=== PATIENT | male | born 1965 | race Caucasian/White ===

== ENCOUNTER 2019-09-09 03:54 | Inpatient (IN) | payer OTHER ==
[~2019-09-09] VITALS: Ht 185.4 cm; Wt 78.0 kg
[2019-09-09 04:00] VITALS: BP 172/85
[2019-09-09] MEDS ORDERED: ASA81BEC PO (04:06)
[2019-09-09] MEDS ORDERED: FISH OIL 1,0001 EAC9 PO (04:07)
[2019-09-09] MEDS ORDERED: SIMVASTATIN80 MG PO (04:07)
[2019-09-09] MEDS ORDERED: BASAGLAR K100 UNIT/1 ×2 (04:08)
[2019-09-09] MEDS ORDERED: HUMALOG100 UNIT/1 SUBQ (04:09)
[2019-09-09 04:30] LABS: ABSOLUTE BASOPHILS 0.1 thou/uL (0.0-0.2); ABSOLUTE EOSINOPHILS 0.2 thou/uL (0.0-0.7); ABSOLUTE LYMPHOCYTES 3.8 thou/uL (0.8-5.3); ABSOLUTE MONOCYTES 0.7 thou/uL (0.0-1.2); BASOPHILS 0.8 %; EOSINOPHILS 2.5 %; HEMATOCRIT 40.8 % (42.0-52.0); HEMOGLOBIN 14.5 gm/dL (14.0-18.0); LYMPHOCYTES 49.2 %; MCH 32.2 pg (26.0-34.0); MCHC 35.5 g/dL (28.0-37.0); MCV 90.7 fL (80.0-100.0); MONOCYTES 8.6 %; MPV 7.7 fl. (7.2-11.1); NUCLEATED RBCS 0 /100WBC; PLATELET COUNT* 235 thou/uL (150-400); POLYS 38.9 %; RDW-CV 13.5 % (10.5-14.5); WBC 7.7 thou/uL (4.0-11.0)
[2019-09-09 04:39] LABS: PROTIME 10.2 Seconds (9.20-11.50)
[2019-09-09 04:42] LABS: URINE BILIRUBIN NEGATIVE (Negative); URINE BLOOD NEGATIVE (Negative); URINE CLARITY CLEAR; URINE COLOR YELLOW; URINE GLUCOSE-RANDOM NEGATIVE (Negative); URINE KETONES NEGATIVE (Negative); URINE LEUKOCYTES-REFLEX NEGATIVE (Negative); URINE NITRITE-REFLEX NEGATIVE (Negative); URINE PROTEIN NEGATIVE (Negative); URINE SPECIFIC GRAVITY 1.015 (1.005-1.030); URINE UROBILINOGEN 0.2 E.U./dl (0.2-1.0)
[2019-09-09 05:15] LABS: CALCIUM 9.1 mg/dL (8.5-10.1); CREATININE 0.8 mg/dL (0.6-1.3)
[2019-09-09 05:19] LABS: ALBUMIN 3.7 g/dL (3.4-5.0); TOTAL BILIRUBIN 0.8 mg/dL (<0.1-1.0); TOTAL PROTEIN 7.4 g/dL (6.4-8.2)
[2019-09-09 08:15] VITALS: BP 136/73
[2019-09-09 08:30] VITALS: BP 136/82
[2019-09-09 09:41] LABS: CHOLESTEROL 149 mg/dL (<200); HDL CHOLESTEROL 40 mg/dL (>40); LDL CHOLESTEROL 98 mg/dL (<100); TC:HDL 3.7 Ratio (Not establshd); TRIGLYCERIDE 59 mg/dL (<150); VLDL 12 mg/dL (<40)
[2019-09-09 10:08] LABS: SERUM ASSESSMENT Clear
--- NOTE | 2019-09-09 10:19 | EKG ---
[place] [address] ELECTROCARDIOGRAM REPORT Name: VANESSA REYNA Room: [address] IN [facility]#: [id number] Admission: 09/09/19 Attend Phys: Vanessa Mcintyre, Discharge: Date of : 63 Date of Service: 09/09/19 0411 Report #: [id number] THIS REPORT FOR: //name// [facility] ED Test Date: 2019-09-09 Test Time: 04:11:08 Pat Name: VANESSA REYNA Department: Room: [facility] Gender: M Apartment Rental Agent: [place] : 1965 Requested By: Sadie Nickerson Order Number: [id number] MD: Rick Beach Measurements Intervals [place] Rate: 72 P: 69 SD: 223 QRS: 69 QRSD: 101 T: 15 QT: 391 QTc: 428 Interpretive Statements Sinus rhythm Prolonged SD interval Minimal ST elevation, anterior leads No previous ECG available for comparison Electronically Signed On 09-09-2019 10:18:19 CDT by Rick Beach [email or web address] <ELECTRONICALLY SIGNED> By: Rick Beach MD, [facility] 09/09/19 1018 0411 0411 Rick Beach MD, FACC /EPI
--- NOTE | 2019-09-09 11:10 | NUR ---
Pt lives at home with . Prior independent and active. SW to remain available to assist with safe dc planning if needs arise.
[2019-09-09] MEDS ORDERED: LOVASTAT20 PO (12:29)
--- NOTE | 2019-09-09 13:48 | 2DMMODE ---
[place] [address] 2 D/M-MODE ECHOCARDIOGRAM Name: VANESSA REYNA Room: [address] IN [facility]#: [id number] Admission: 09/09/19 Attend Phys: Vanessa Mcintyre, Discharge: Date of : 63 Date of Service: 09/09/19 1346 Report #: [id number] THIS REPORT FOR: cc: Rick López MD, David L. MD Blick, David R. MD [facility] ~ ADDENDUM APPROVED REPORT Study performed: 09/09/2019 11:16:34 EXAM: Echocardiogram with bubble study Patient Location: In-Patient Room #: [facility] Status: routine BSA: 2.11 HR: 60 bpm BP: 136/73 mmHg Rhythm: NSR Other Information Study Quality: Good Indications Dizziness and Vertigo 2D Dimensions IVSd: 11.17 (7-11mm) LVOT Diam: 21.39 (18-24mm) LVDd: 51.18 mm PWd: 9.43 (7-11mm) Ascending Ao: 32.64 (22-36mm) LVDs: 26.80 (25-40mm) Aortic Root: 31.57 mm Volumes Left Atrial Volume (Systole) LA ESV Index: 30.50 mL/m2 Aortic Valve AoV Peak Brad.: 1.28 m/s AO Peak Gr.: 6.59 mmHg LVOT Max P.87 mmHg AO Mean Gr.: 3.71 mmHg LVOT Mean P.63 mmHg LVOT Max V: 0.98 m/s AO V2 VTI: 26.22 cm LVOT Mean V: 0.58 m/s FRANCISCA (VTI): 3.08 cm2 LVOT V1 VTI: 22.48 [place] [address] 2 D/M-MODE ECHOCARDIOGRAM Name: VANESSA REYNA Room: [address] IN ..#: [id number] Admission: 09/09/19 Attend Phys: Vanessa Mcintyre, Discharge: Date of : 63 Date of Service: 09/09/19 1346 Report #: [id number] E/A Ratio: 1.68 MV Decel. Time: 188.55 ms MV E Max Brad.: 0.93 m/s MV PHT: 54.68 ms MVA (PHT): 4.02 cm2 TDI E/Lateral E': 5.81 E/Medial E': 7.15 Medial E' Brad.: 0.13 m/s Lateral E' Brad.: 0.16 m/s Pulmonary Valve PV Peak Brad.: 1.31 m/s PV Peak Gr.: 6.91 mmHg Left Ventricle The left ventricle is normal size. There is normal LV segmental wall motion. There is normal left ventricular wall thickness. Left ventricular systolic function is normal. The left ventricular ejection fraction is within the normal range. LVEF is 60-65%. The left ventricular diastolic function is normal. Right Ventricle The right ventricle is normal size. The right ventricular systolic function is normal. Atria The left atrium size is normal. The interatrial septum is intact with no evidence for an atrial septal defect. The right atrium size is normal. Aortic Valve The Aortic valve is sclerotic. No aortic regurgitation is present. There is no aortic valvular stenosis. Mitral Valve The mitral valve is normal in structure. There is no mitral valve regurgitation noted. No evidence of mitral valve stenosis. Tricuspid Valve The tricuspid valve is normal in structure. Unable to assess PA pressure. Trace tricuspid regurgitation. Pulmonic Valve The pulmonary valve is normal in structure. There is no pulmonic [place] [address] 2 D/M-MODE ECHOCARDIOGRAM Name: VANESSA REYNA Room: [address] IN [facility]#: [id number] Admission: 09/09/19 Attend Phys: Vanessa Mcintyre, Discharge: Date of : 63 Date of Service: 09/09/19 1346 Report #: [id number] Great Vessels The aortic root is normal in size. IVC is normal in size and collapses >50% with inspiration. Pericardium There is no pericardial effusion. <Conclusion> LVEF is 60-65%. The interatrial septum is intact with no evidence for an atrial septal defect. <ELECTRONICALLY SIGNED> By: Rick Beach MD, FACC 09/09/19 1346 1346 1346 Rick Beach MD, FACC /INF
[2019-09-09 16:11] VITALS: BP 130/79
--- NOTE | 2019-09-09 17:20 | NUR ---
PATIENT ADMITTED TO ROOM 308. PATIENT ALERT AND ORIENTED BUT VERY ANXIOUS. PATIENT A FALL RISK FOR WEAKNESS BUT DOES NOT FOLLOW PROTOCOL GIVEN. IV SL. NEURO CONS AND MRI OF HEAD THIS AFTERNOON, AWAITING RESULTS. US CAROTIDS RESULTS GIVEN TO DR. MONCADA. PATIENT HAS OWN HOME INSULIN PENS AT BEDSIDE PER DR. MORALES ORDERS. NO WOUNDS NOTED. CARB CONTROLLED DIET. ECHO COMPLETED. REHAB ALSO CONS. ST SIGNED OFF. PT/OT ORDERED.
[2019-09-09 21:10] VITALS: BP 127/81
[2019-09-10 05:51] LABS: ABSOLUTE BASOPHILS 0.1 thou/uL (0.0-0.2); ABSOLUTE EOSINOPHILS 0.2 thou/uL (0.0-0.7); ABSOLUTE LYMPHOCYTES 3.7 thou/uL (0.8-5.3); ABSOLUTE MONOCYTES 0.6 thou/uL (0.0-1.2); ABSOLUTE NEUTROPHILS 3.4 thou/uL (1.6-8.1); BASOPHILS 0.8 %; EOSINOPHILS 2.7 %; HEMOGLOBIN 15.4 gm/dL (14.0-18.0); LYMPHOCYTES 46.2 %; MCH 32.6 pg (26.0-34.0); MCHC 35.8 g/dL (28.0-37.0); MCV 91.1 fL (80.0-100.0); MONOCYTES 7.5 %; MPV 7.6 fl. (7.2-11.1); NUCLEATED RBCS 0 /100WBC; PLATELET COUNT* 258 thou/uL (150-400); POLYS 42.8 %; RBC 4.72 mil/uL (4.50-6.00); RDW-CV 13.4 % (10.5-14.5); WBC 7.9 thou/uL (4.0-11.0)
[2019-09-10 06:08] LABS: ALBUMIN 3.8 g/dL (3.4-5.0); CALCIUM 9.2 mg/dL (8.5-10.1); CREATININE 0.8 mg/dL (0.6-1.3); POTASSIUM 4.1 mmol/L (3.5-5.1); TOTAL BILIRUBIN 1.2 mg/dL (<0.1-1.0); TOTAL PROTEIN 7.6 g/dL (6.4-8.2)
--- NOTE | 2019-09-10 06:26 | NUR ---
PATIENT HAS SLEPT WELL THROUGHOUT MOST OF THE NIGHT. VSS ON RA. NO C/O PAIN. PATIENT IS UP WITH SBA WITH WALKER. IV IN RIGHT AC-SL. MEDICATIONS GIVEN ORDERED AND CHARTED. ASSESSMENT CHARTED. PATIENT INSTRUCTED TO USE CALL LIGHT WHEN NEEDING ASSISTANCE. HOURLY ROUNDS MADE. WILL CONTINUE WITH PLAN OF CARE AND NURSING TO MONITOR.
[2019-09-10 07:40] VITALS: BP 161/91
[2019-09-10 13:03] VITALS: BP 115/70
[2019-09-10 13:31] LABS: CSF GLUCOSE 98 mg/dl (40-70); CSF PROTEIN 75.1 mg/dl (15-45)
[2019-09-10 14:11] LABS: CSF CLARITY CLEAR; CSF COLOR COLORLESS; CSF RBC 0 /mm3; CSF WBC 1 /mm3 (0-10); VOLUME 15 ml
--- NOTE | 2019-09-10 16:30 | NUR ---
PATIENT TRANSFERRED TO [facility] THIS AFTERNOON WHEN BED WAS AVAILABLE. REPORT CALLED TO KENNY LANDIS. PATIENT HAD MRI AND LP THIS AM. PER DR. ANGELA PATIENT TO HAVE GAMMAGLOBULIN DAILY X 5 DAYS, [facility] ORDERED. DR. ANGELA WAS NOTIFIED THAT MEDICATION WAS NOT GOING TO BE AVAILABLE UNTIL TOMORROW. VITALS AFTER LP STABLE. IV REAMINS SL, FLUSHING WITHOUT DIFFICULTY. PATIENT TRANSFERRED TO ROOM 209 WITH ALL BELONGINGS.
--- NOTE | 2019-09-10 16:45 | NUR ---
PT A/O. LOWER EXTREMITY WEAKNESS REMAINS STABLE. PT INSTRUCTED TO REMAIN IN BED. EDUCATED ON PLAN OF CARE. NAD. NO CHANGES IN AM ASSESSMENT BY HENNA.
[2019-09-10 16:59] VITALS: BP 130/77
[2019-09-10 20:00] VITALS: BP 123/86
[2019-09-10 21:06] LABS: IgA 151 mg/dL (90-386); IgG 1382 mg/dL (700-1600); IgM 201 mg/dL (20-172)
[2019-09-11 00:17] VITALS: BP 130/73
--- NOTE | 2019-09-11 06:59 | NUR ---
ASSUMED PT CARE AT 1915. NURSING ASSESSMENT COMPLETED AT START OF SHIFT. SAFETY AND SECURITY OFFICER IN PLACE, TRACING SR 1D. HOURLY ROUNDING COMPLETED, CALL LIGHT WITHIN REACH.
[2019-09-11 07:07] LABS: HEPATITIS B SURFACE AG Negative (Negative)
[2019-09-11 08:35] VITALS: BP 117/78
[2019-09-11 12:10] VITALS: BP 128/95
--- NOTE | 2019-09-11 15:30 | NUR ---
RUNNING IV IG INFUSION SLOW PER DR. FREEMAN. STARTING AT 30ML/HR AND IF PT TOLERATE MAY INCREASE TO 50ML/HR PRE CONSUILTATION WITH WIN IN THE PHARMACY. PT TOLERATING INFUSION. WILL CONTINUE TO ASSESS.
[2019-09-11 16:13] VITALS: BP 114/75
--- NOTE | 2019-09-11 18:10 | NUR ---
DR. VALLADARES SPOKE WITH PT AT BEDSIDE AND CAME UP WITH PLAC THAT PT COULD CHESK HIS OWN BLOOD SUGARS AND AND GIVE HIMSLEF HIS OWN INSULING HOWEVER HE IS TO REPORT GLUCOSE TO LEVEL TO STAFF.
[2019-09-11 20:59] VITALS: BP 119/81
[2019-09-12] VITALS: BP 138/77
[2019-09-12 04:00] VITALS: BP 141/75
--- NOTE | 2019-09-12 07:54 | NUR ---
PT IS ABLE TO COMMUNICATE HIS NEEDS TO STAFF EFFECTIVELY. 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 HE HAS DENIED THE NEED FOR PAIN MEDICATION UP TO THIS TIME. PT HAS MD APPROVAL TO TAKE OWN BLOOD GLUCOSE AND SELF-DOSE INSULIN; RNs TO RECORD INFO IN [employer].
[2019-09-12 10:27] LABS: ABSOLUTE BASOPHILS 0.1 thou/uL (0.0-0.2); ABSOLUTE MONOCYTES 0.7 thou/uL (0.0-1.2); ABSOLUTE NEUTROPHILS 4.1 thou/uL (1.6-8.1); BASOPHILS 0.7 %; EOSINOPHILS 0.6 %; HEMATOCRIT 40.3 % (42.0-52.0); HEMOGLOBIN 14.5 gm/dL (14.0-18.0); LYMPHOCYTES 38.2 %; MCH 32.4 pg (26.0-34.0); MCV 90.1 fL (80.0-100.0); MONOCYTES 8.9 %; MPV 7.7 fl. (7.2-11.1); NUCLEATED RBCS 0 /100WBC; PLATELET COUNT* 272 thou/uL (150-400); POLYS 51.6 %; RBC 4.47 mil/uL (4.50-6.00); RDW-CV 13.6 % (10.5-14.5); WBC 7.9 thou/uL (4.0-11.0)
[2019-09-12 10:42] LABS: ALBUMIN 3.5 g/dL (3.4-5.0); CALCIUM 8.9 mg/dL (8.5-10.1); CREATININE 0.9 mg/dL (0.6-1.3); POTASSIUM 3.9 mmol/L (3.5-5.1); TOTAL BILIRUBIN 0.9 mg/dL (<0.1-1.0); TOTAL PROTEIN 7.9 g/dL (6.4-8.2)
[2019-09-12 12:24] VITALS: BP 123/78
--- NOTE | 2019-09-12 12:39 | NUR ---
CONTINUE TO FOLLOW. SPOKE WITH PT OVER PHONE. DISCUSSED POSSIBLE REHAB ONCE MEDICALLY STABLE. ANSWERED QUESTIONS ABOUT POSSIBLE REHAB AND CM ROLE. PT VOICED CONCERN ABOUT COST OF CARE, EXPLAINED DEDUCTIBLES AND OOP AND HOW THOSE WORK BUT ENCOURAGED HIM TO CONTACT HIS INSURANCE IF HAD MORE QUESTIONS. DID EXPLAIN THAT INSURANCE WILL HAVE TO AUTH REHAB OR OTHER STAY POST HOSPITAL. HE VERBALIZED UNDERSTANDING
--- NOTE | 2019-09-12 16:14 | NUR ---
PATINET RESTING IN BED. IVIG INFUSING TODAY PER ORDERS. PATINET PARTICITPATING WITH THERAPIES. VSS AND PATINET IN NO APPARENT SIGNS OF DISTRESS AT THIS TIME. HOULRY ROUNDING COMPELTD FOR PATINET SAFETY.
[2019-09-12 16:28] VITALS: BP 152/77
[2019-09-12 20:00] VITALS: BP 144/74
[2019-09-12 23:59] VITALS: BP 130/75
[2019-09-13] VITALS: BP 130/75
[2019-09-13 04:00] VITALS: BP 131/69
[2019-09-13 04:24] LABS: HEMATOCRIT 37.3 % (42.0-52.0); HEMOGLOBIN 13.5 gm/dL (14.0-18.0); MCH 32.5 pg (26.0-34.0); MCHC 36.2 g/dL (28.0-37.0); MCV 89.6 fL (80.0-100.0); MPV 7.6 fl. (7.2-11.1); NUCLEATED RBCS 0 /100WBC; PLATELET COUNT* 241 thou/uL (150-400); RBC 4.16 mil/uL (4.50-6.00); RDW-CV 13.3 % (10.5-14.5); WBC 6.7 thou/uL (4.0-11.0)
[2019-09-13 04:44] LABS: CALCIUM 8.6 mg/dL (8.5-10.1); CREATININE 0.9 mg/dL (0.6-1.3); POTASSIUM 3.6 mmol/L (3.5-5.1)
[2019-09-13 06:18] LABS: ABSOLUTE BASOPHILS 0.1 thou/uL (0.0-0.2); ABSOLUTE EOSINOPHILS 0.1 thou/uL (0.0-0.7); ABSOLUTE LYMPHOCYTES 2.8 thou/uL (0.8-5.3); ABSOLUTE MONOCYTES 0.7 thou/uL (0.0-1.2); ABSOLUTE NEUTROPHILS 2.9 thou/uL (1.6-8.1); ANISOCYTOSIS 1+; PLATELET ESTIMATE ADEQUATE; POIKILOCYTOSIS 1+
--- NOTE | 2019-09-13 07:01 | NUR ---
ASSUMED PT CARE AT APPROX 1930. PT IS AWAKE AND ORIENTED X4. JIG BUILDER IS TRACING SR WITH A 1ST DEGREE AVB. PT C/O BACK PAIN, PARTIALLY RELIEVED BY PAIN MEDS GIVEN PER AUG. ZOFRAN GIVEN FOR NAUSEA. CALL LIGHT WITHIN REACH. HOURLY ROUNDING DONE FOR SAFETY. HIGH FALL PRECAUTIONS IN PLACE.
--- NOTE | 2019-09-13 12:00 | CON ---
[address] [address] CONSULTATION Name: VANESSA REYNA Room: [address] IN [facility]#: [id number] Admission: 09/09/19 Attend Phys: Vanessa Mcintyre MD Discharge: Date of : 63 Report #: [id number] THIS REPORT FOR: //name// cc: Rick López MD, David L. MD ~ THIS REPORT FOR: //name// CC: Rick Mcintyre DATE OF SERVICE: 09/09/2019 HISTORY OF PRESENT ILLNESS: A 54-year-old male patient who was evaluated by me for somewhat of an unusual history. This patient is a longstanding type 1 diabetic, but he indicates that he takes care of his blood sugar very well. He started having trouble with blood sugar on Monday and the last time he had a similar problem. He was found to have "bug" which I assuming some kind of systemic infection. On Monday, he ran up his regular 4 miles, but then started feeling ataxic. The things have progressed since that time and his ataxia is worst. He does drink alcohol, but he does not smoke. He does not believe that he has changed the amount of alcohol he drinks in a day. I do not know exactly how much it is. REVIEW OF SYSTEMS: Indicate that 14-point review of system was carried out. It does demonstrate that this patient has diabetes and he drinks alcohol daily. He also indicated that at one time he underwent a calcium scan. His calcium score was high and he saw a flatwork catcher who did a treadmill. It showed some minor abnormality, but they thought his heart was good. That was his relevant 14-point review of system. PAST MEDICAL HISTORY: Negative for this kind of episode. FAMILY HISTORY: Unremarkable. SOCIAL HISTORY: He does drink alcohol daily. PHYSICAL EXAMINATION: Indicates he is alert, responsive, able to follow simple and complex command. His higher functions cranial nerve examination is unremarkable. Neuromuscular examination indicates that it does not look like he is that strong in the lower extremities or even in upper extremities compared to the exercise he does. His position sense and touch is intact. Tone is also symmetrical. He does [id number] reasonably, but when I make him walk, he has trouble with tandem walking. He does not appear to have any vascular insufficiency in the lower extremities. Cardiac and respiratory examinations appear noncontributory. His blood pressure is 136/82, respiration is 18, pulse is 68 and temperature [place] 98.5. [place] [address] CONSULTATION Name: REYNAVANESSA Aparicio Room: [address] IN [facility]#: [id number] Admission: 09/09/19 Attend Phys: Vanessa Mcintyre MD Discharge: Date of : 63 Report #: [id number] LABORATORY DATA: White count is 7.7. Sodium is normal. He did have a CT and CT angiogram on admission and that does not show any definite abnormality. CT angiogram of the head and neck. This patient does have difficulty with tandem walking. IMPRESSION AND PLAN: This patient appeared to have ataxia. He has significant difficulty with tandem walking. It is difficult to tell about the etiology, but he needs further workup. I think we should exclude any CHECKER PRODUCT DESIGN pathology by doing an MRI and consider LP if MRI is negative to look for increased protein. The main differential is neuropathy, which usually does not come that fast. Thank you very much for this referral and we will follow this patient along with you. <ELECTRONICALLY SIGNED> By: Luis Anderson MD 09/13/19 1200 [id number] [id number] Anderson MD /nt
--- NOTE | 2019-09-13 12:01 | NUR ---
Spoke with , rehab consult pending. Therapies to see. Neuro still following. Anticipate dc early next week.
[2019-09-13 12:21] VITALS: BP 117/73
[2019-09-13 16:30] VITALS: BP 123/65
[2019-09-13 20:00] VITALS: BP 143/85
[2019-09-14] VITALS: BP 135/75
[2019-09-14 04:00] VITALS: BP 132/72
--- NOTE | 2019-09-14 04:48 | NUR ---
ASSUMED PT CARE AT APPROX 1930. PT IS AWAKE AND ORIENTED X4. ASSEMBLER STEAM AND GAS TURBINE IS TRACING SR. PT COMPLAINED OF LOWER BACK PAIN PARTIALLY RELIEVED BY PAIN MEDS GIVEN PER MAR. HIGH FALL PRECAUTIONS IN PLACE. CALL LIGHT WITHIN REACH. WILL CONTINUE TO MONITOR PT.
[2019-09-14 08:46] VITALS: BP 125/77
[2019-09-14 12:00] VITALS: BP 137/77
--- NOTE | 2019-09-14 15:30 | NUR ---
ASSUMED CARE OF PT AROUND 0730 THIS AM. REFER TO ASSESSMENT. PT UP TO W/C AND RECLINER MULTIPLE TIMES THIS SHIFT. JEFFREY NECESSARY FOR TRANFERS AT THIS TIME. PT WORKING WITH PT AND OT. NO OTHER CONCERNS AT THIS TIME. CLWR. WCTM.
[2019-09-14 16:00] VITALS: BP 123/77
[2019-09-14 20:00] VITALS: BP 127/78
[2019-09-15] VITALS: BP 146/78
[2019-09-15 04:10] VITALS: BP 153/72
[2019-09-15 05:07] LABS: CALCIUM 8.4 mg/dL (8.5-10.1); CREATININE 0.8 mg/dL (0.6-1.3); POTASSIUM 3.8 mmol/L (3.5-5.1)
[2019-09-15 05:28] LABS: HEMATOCRIT 36.5 % (42.0-52.0); HEMOGLOBIN 13.2 gm/dL (14.0-18.0); MCH 32.8 pg (26.0-34.0); MCHC 36.3 g/dL (28.0-37.0); MCV 90.5 fL (80.0-100.0); MPV 7.9 fl. (7.2-11.1); NUCLEATED RBCS 0 /100WBC; PLATELET COUNT* 247 thou/uL (150-400); RBC 4.03 mil/uL (4.50-6.00); RDW-CV 13.3 % (10.5-14.5); WBC 8.3 thou/uL (4.0-11.0)
--- NOTE | 2019-09-15 05:31 | NUR ---
PT AWAKE FOR MUCH OF THE NIGHT HE STATES. MEDS GIVEN PER ORDERS, HYDRAULIC CORRUGATING MACHINE OPERATOR NOTIFIED FOR SLEEP AIDE TWICE WITH ORDERS RECEIVED. PT USING CALL LITE FREQUENTLY FOR CHANGE OF POSITION BED, RECLINER, WHEELCHAIR TO HELP WITH LOW BACK PAIN AND FOR COMFORT FOR SLEEP. HS ACCUCHECK 175, PT GIVES OWN INSULIN MEDS. AM LABS. TELE SR, VSS. AOX4 ABLE TO USE CALL LITE AND MAKE NEEDS KNOWN. WARM K PAD TO BACK PRN, PT STATES IT DOESNT HELP. ICE PACK GIVEN. JEFFREY LIFT USED FOR TRANSFERS. PT MOVING ARMS WELL, BUT UNABLE TO USE LEGS MUCH DUE TO WEAKNESS. Markus JACOBS. PT OT. REHAB TO CONSULT FOR DISCHARGE PLANNING.
[2019-09-15 06:39] LABS: ABSOLUTE EOSINOPHILS 0.2 thou/uL (0.0-0.7); ABSOLUTE LYMPHOCYTES 3.2 thou/uL (0.8-5.3); ABSOLUTE MONOCYTES 0.5 thou/uL (0.0-1.2); ABSOLUTE NEUTROPHILS 4.4 thou/uL (1.6-8.1); PLATELET ESTIMATE ADEQUATE
[2019-09-15 08:30] VITALS: BP 134/73
[2019-09-15 13:00] VITALS: BP 135/75
--- NOTE | 2019-09-15 15:31 | NUR ---
ASSUMED CARE OF PT APPROX 0730. REASSESSMENT COMPLETED CHARTED. MEDICATIONS GIVEN CHARTED. PT UP TO BEDSIDE CAMODE WITH TWO PERSON MAX ASSIST. PT TAKING NAPS ON AND OFF ALL SHIFT. PT STATES THEY ARE TIRED AND DIDNT HAVE A GOOD NIGHT SLEEP. SAFTEY PRECAUTIONS UTILIZED, HOURLY ROUNDING. PT CALLS OUT FOR NEEDS.
[2019-09-15 15:51] VITALS: BP 129/77
[2019-09-15 20:29] VITALS: BP 128/78
[2019-09-16] VITALS: BP 148/73
[2019-09-16 04:00] VITALS: BP 131/71
--- NOTE | 2019-09-16 05:34 | NUR ---
PT IS ABLE TO COMMUNICATE HIS NEEDS TO STAFF EFFECTIVELY. CURRENT PAIN MEDICATION REGIMEN HAS BEEN ADEQUATE FOR CONTROLLING HIS PAIN UP TO THIS TIME. PT/OT FOLLOWING, REHAB CONSULTED. PT CHECKS OWN BLOOD GLUCOSE AND DOSES OWN INSULIN MEDS PER MD PERMISSION/ORDER.
[2019-09-16 07:35] VITALS: BP 113/75
--- NOTE | 2019-09-16 11:17 | NUR ---
Acute rehab to initiate insurance auth, Pt medically stable to dc.
[2019-09-16 11:49] VITALS: BP 113/75
--- NOTE | 2019-09-16 12:04 | NUR ---
Nutrition: Pt assessed for LOS. Discharging to rehab soon. Wt: 172#. Eating well on CHO controlled diet. Labs: BG 213, A1c 6%, alb 3.5. Rx noted. H/o DMI, HTN, CAD. Admitted with GBS. At low nutrition risk at this time.
--- NOTE | 2019-09-16 12:16 | NUR ---
Pt discharing to acute rehab today, updated Pt, he is in agreement. Unit to fax dc orders. Pt to update his .
[2019-09-16 12:25] VITALS: BP 123/73
[2019-09-16 17:03] VITALS: BP 135/81
--- NOTE | 2019-09-16 18:08 | NUR ---
PT REMAINED ALERT AND ORIENTED. PT UP TO CHAIR AND WHEELCHAIR. PT TO TRANSFER TO REHAB TODAY, AWAITING TO GIVE REPORT. PAIN MEDS GIVEN ORDERED. FALL RISK PRECAUTIONS IN PLACE. HOURLY ROUNDING COMPLETED. WILL CONTINUE TO MONITOR.
== END 2019-09-16 18:44 | DRG 95 ==
LOC: M.ERS 03:54 → M.3W 06:33 → M.2W 06:33 → M.TBA-ER 06:33 → M.3W 08:28 → M.2W 09-10 14:58
PROVIDERS: Internal Medicine; Personal Emergency Response Attendant; Psychiatry & Neurology Neuromuscular Medicine; ADMIT Internal Medicine
DX: G61.0 Guillain-Barre syndrome (principal); E87.1 Hypo-osmolality and hyponatremia; F17.210 Nicotine dependence, cigarettes, uncomplicated; E78.5 Hyperlipidemia, unspecified; I25.10 Atherosclerotic heart disease of native coronary artery without angina pectoris; G47.00 Insomnia, unspecified; R27.0 Ataxia, unspecified; E10.9 Type 1 diabetes mellitus without complications; I10 Essential (primary) hypertension; E78.00 Pure hypercholesterolemia, unspecified; Z79.899 Other long term (current) drug therapy; Z79.4 Long term (current) use of insulin; Z79.82 Long term (current) use of aspirin; Z88.1 Allergy status to other antibiotic agents; Z83.3 Family history of diabetes mellitus; Z82.49 Family history of ischemic heart disease and other diseases of the circulatory system; Z23 Encounter for immunization

== ENCOUNTER 2019-09-16 15:03 | Inpatient (IN) | payer OTHER ==
[~2019-09-16] VITALS: Ht 185.4 cm; Wt 84.0 kg
[~2019-09-16 15:03] MED LIST: ASA81BEC PO; BASAGLAR K100 UNIT/1; FISH OIL 1,0001 EAC9 PO; HUMALOG100 UNIT/1 SUBQ; LOVASTAT20 PO; SIMVASTATIN80 MG PO
[2019-09-16 19:04] VITALS: BP 115/77
[2019-09-16 20:00] VITALS: BP 128/79
--- NOTE | 2019-09-16 22:25 | NUR ---
PATIENT ARRIVED PER BED FROM ROOM 209 AT 1823. DIAGNOSIS IS GUILLIAN PEDERSON SYNDROME. SITTING UP IN WHEELCHAIR. ANXIOUS AND FRUSTRATED. WORDS OF ENCOURAGEMENT GIVEN. MAIN COMPLAINT IS NOT BEING ABLE TO SLEEP DUE TO LOW BACK PAIN. PATIENT STATES THINKS PAIN IS FROM A COMBINATION OF THERAPY AND THE BED BEING UNCOMFORTABLE. REHAB ADMISSION TOOL COMPLETED. CALL LIGHT AND URINAL WITHIN REACH.
[2019-09-17 04:51] LABS: HEMATOCRIT 35.4 % (42.0-52.0); HEMOGLOBIN 12.9 gm/dL (14.0-18.0); MCH 32.8 pg (26.0-34.0); MCHC 36.6 g/dL (28.0-37.0); MCV 89.6 fL (80.0-100.0); MPV 7.2 fl. (7.2-11.1); RBC 3.95 mil/uL (4.50-6.00); RDW-CV 13.3 % (10.5-14.5); WBC 8.4 thou/uL (4.0-11.0)
[2019-09-17 05:23] LABS: CALCIUM 8.6 mg/dL (8.5-10.1); CREATININE 0.8 mg/dL (0.6-1.3); POTASSIUM 4.2 mmol/L (3.5-5.1)
--- NOTE | 2019-09-17 05:42 | NUR ---
SLEPT ABOUT ONE AND A HALF HOUR AFTER BEING ASSISTED TO BED AT 2230. WOKE UP WITH BACK PAIN. TRANSFERRED TO RECLINER WITH MAX ASSIST OF ONE TO THE RECLINER AND COULDN'T GET COMFORTABLE. THEN TRANSFERRED FROM RECLINER TO THE WHEELCHAIR PER REQUEST. THEN AFTER RECEIVING TRAMADOL AT 0300 TRANSFERRED FROM WHEELCHAIR TO THE BED AND SLEPT FOR ABOUT 2 HOURS. PATIENT IS NOW BEING TRANSFERRED BACK TO THE WHEELCHAIR PER REQUEST. REMAINS RESTLESS AND IMPATIENT. USED URINAL DURING THE NIGHT. LIDOCAINE PATCH WAS APPLIED ON LOWER LEFT BACK PER REQUEST AND PER NEW ORDER AT 0200. RECEIVED HYDROCODONE TWICE THIS SHIFT. HOURLY ROUNDING IN PROGRESS.
[2019-09-17 07:35] VITALS: BP 102/67
--- NOTE | 2019-09-17 12:35 | NUR ---
Nutrition: Pt admitted to rehab w/ GBS. H/o DMI, HTN, CAD. A1c 6%, BG 214, alb 3.5. Eating well on CHO controlled diet. Wt: 169#. Low nutrition risk. Will follow weekly.
--- NOTE | 2019-09-17 16:20 | NUR ---
NO COMPLAINTS OF PAIN THIS SHIFT. PATIENT ASSISTED ONTO TOILET AND HAD A BM. VOIDING PER URINAL. PATIENT USING HOME INSULIN PER ORDERS. PER DR. LIND GABAPENTIN AND HYDROCODONE TO BE GIVEN SCHEDULED AT BEDTIME. PT/OT/ST ORDERED.
--- NOTE | 2019-09-17 16:54 | NUR ---
SW completed initial assessment for inpt rehab. Pt lives at home with . Pt was independent and active prior to hospitalization and has goals to return home with at [facility]. SW to follow to discuss more details with pt and with pt ; team conference to be held tomorrow.
[2019-09-17 19:00] VITALS: BP 116/78
--- NOTE | 2019-09-17 21:10 | NUR ---
SCHEDULED PAIN MEDICATIONS GIVEN AT THIS TIME PER PATIENT'S REQUEST. RATES BACK PAIN AT A "2". HAD A LARGE FORMED BM EARLIER ON THE TOILET. DID OWN JORGE CARE. TRANSFERRED SELF FROM TOILET TO THE WHEELCHAIR WITH STANDBY ASSIST AND GAITBELT. ABLE TO LOCK WHEELCHAIR WITHOUT ASSISTANCE. ALSO ABLE TO REMOVE SIDE ARM FROM WHEELCHAIR PRIOR TO TRANSFERRING SELF FROM WHEELCHAIR TO BED WITH SBA. WOULD NOT WAIT FOR NURSE TO PLACE GAITBELT ON FIRST THOUGH. CALL LIGHT AND URINAL WITHIN REACH. AMBIEN GIVEN PER PATIENT'S REQUEST.
--- NOTE | 2019-09-18 05:08 | NUR ---
RESTED IN BED UNTIL ABOUT 0345. USED URINAL DURING THE NIGHT. CURRENTLY SITTING UP IN WHEELCHAIR WATCHING TV. PATIENT GIVEN A FRUIT CUP THIS MORNING. PATIENT UPSET THAT A BANANA IS AVAILABLE. HOURLY ROUNDING IN PROGRESS.
[2019-09-18 08:32] VITALS: BP 111/75
--- NOTE | 2019-09-18 17:39 | NUR ---
SW called pt Catarina to review team conference summary and plan for pt to remain on rehab unit at least another week with team to reasses pt length of stay during team conference next Monday. Pt in agreement with plan and hopeful pt will be able to regain some weight, regain strength and independence with mobility and ADLs to return home as independent as possible. SW to continue to follow to assist with safe dc planning.
[2019-09-18 19:00] VITALS: BP 107/70
--- NOTE | 2019-09-18 19:02 | NUR ---
ASSUMED CARE OF THE PT @ 0700. PT A/OX4. DENIES PAIN AT THIS TIME. DENIES THE NEED FOR PAIN MEDS. PT IS MOBILE PER W/C. CONTINENT OF BOWEL AND BLADDER. PT TRANSFERS WITH SBA TO THE TOILET. UP IN THE CHAIR MOST OF THE DAY. NEW ORDERS TO ADJUST THE GABAPENTIN ORDER. APPETITE IS GOOD. PT IS STABLE. RESTING QUIETLY IN W/C AT THIS TIME WITH CALL LIGHT IN REACH. WILL CONTINUE TO MONITOR.
--- NOTE | 2019-09-19 01:25 | NUR ---
ASSUMED CARE @ 1941-09/17-.SITS IN W/C @ BEDSIDE WATCHING TV.PROPELS W/C IND.HAD HS DOSE PAIN MED @ 2029.PRN AMBIEN 5 MG TAB GIVEN @ 2029 & 2033 ORALLY.PIVOT TRANSFER FROM W/C TO BED W/ SBA ONLY @ 2149.BED ALARM PUT ON @ 2149.ON HOURLY ROUNDS.TURNS SELF @ NIGHT.TWO URINALS W/IN REACH @ NIGHT.
--- NOTE | 2019-09-19 05:17 | NUR ---
AWAKE @ 0200.PATIENT CHECKED BLOOD SUGAR-145.SEE 2ND PAIN MANAGEMENT @ 0217. WANTS TO SIT IN W/C & SBA BY RN FROM BED TO W/C @ 0340.WANTS K PAD TO BACK & APPLIED @ 0340.SEE 3RD PAIN MANAGEMENT @ 0353 W/ TYLENOL 2 TABS ORAL.THEN, BECOMIUNG UNCOMFORTABLE IN W/C & TRANSFERED TO RECLINER BUT PREFERS NEW RECLINER.TRANSFERED TO NEW RECLINER @ 0430.APPEARS SLEEPING @ 0438.SLEPT LATE @ 2300.USED URINAL X6 DURING NIGHT.TOOK ALL DIET SPRITE HS SNACK.TOOK BLACK COFFEE W/ ONE PACKAGE REJI CRUZ @ 0430.
[2019-09-19 08:00] VITALS: BP 118/40
--- NOTE | 2019-09-19 17:54 | NUR ---
ASSESSMENT COMPLETED DOCUMENTED THIS MORNING. PATIENT UP IN CHAIR ALL OF THE DAY AND PARTICIPATING IN THERAPIES. PATIENT IS INDEP WITH BLOOD SUGAR MANAGEMENT AND ADMIN OF HIS DIABETIC MEDICATIONS AT THE BEDSIDE. BLOOD SUGARS AVERAGING 104-153. DENIES ANY PAIN TODAY AND IS REQUESTING LIDOCAINE PATCH BE APPLIED AT NIGHT, ORDERS WERE CHANGED TO REFLECT PATIENT'S REQUEST.
[2019-09-19 21:00] VITALS: BP 133/49
--- NOTE | 2019-09-19 21:25 | NUR ---
SITTING UP IN WHEELCHAIR WATCHING TV. DENIES PAIN. STATES BACK PAIN DOESN'T START UNTIL HE HAS BEEN IN BED FOR AWHILE. REMINDED PATIENT THAT HE NEEDED TO CALL BEFORE GOING TO THE TOILET OR TO BED ESPECIALLY SINCE HE WAS TAKING HIS AMBIEN AND SCHEDULED HYDROCODONE. INFORMED PATIENT THAT IT WAS PASSED ON IN REPORT THAT HE WAS TAKING HIMSELF TO THE TOILET WITHOUT CALLING FOR ASSIST. PATIENT DENIED THIS. DID NOT CONMMUNICATE TO THE PATIENT THAT THIS WASN'T THE FIRST TIME I HAD GOTTON IN REPORT THAT HE HAD BEEN TAKING HIMSELF TO THE TOILET WITHOUT CALLING FOR ASSIST. PATIENT BECAME DEFENSIVE, ANGRY AND ARGUMENTATIVE. PATIENT ASKED TO BE GIVEN JUST ONE 5MG PO AMBIEN AND TAKE ONE LATER. INFORMED PATIENT THAT [facility] HAS A POLICY THAT SLEEP MEDICINE BE GIVEN BY 10PM. EXPLAINED THAT IT IS ESPECIALLY IMPORTANT ON THE REHAB UNIT SO THE PATIENTS ARE ALERT ENOUGH TO PERFORM THERAPIES THE FOLLOWING DAY. PATIENT STATES EVERY NIGHT HE AWAKENS AT 0200 AND IS UNABLE TO RETURN TO SLEEP AND PARTIALLY BECAUSE HIS BACK IS HURTING. PATIENT HAS BEEN RECEIVING PRN HYDROCODONE WHEN HE WAKES UP DURING THE NIGHT BUT STILL ISN'T ABLE TO RETURN TO SLEEP, PATIENT IS ALSO RECEIVING SCHEDULED REMERON FOR SLEEP. ANOTHER COMPLAINT VOICED BY THE PATIENT WAS THAT HE WAS RECEIVING CONFLICTING INFORMATION FROM HIS NURSES AND DOCTORS. INFORMED PATIENT THAT HE COULD SPEAK TO THE PATIENT ADVOCATE ABOUT THIS IF HE WANTED TO. PATIENT STATED HE DIDN'T WANT TO DO THIS. CALL LIGHT WITHIN REACH.
--- NOTE | 2019-09-20 05:03 | NUR ---
RESTED UNTIL ABOUT 0400 THEN GOT UP TO THE WHEELCHAIR WITH SBA ASSIST. VOIDED X 3 DURING THE NIGHT. HOURLY ROUNDING IN PROGRESS.
[2019-09-20 08:37] VITALS: BP 125/70
--- NOTE | 2019-09-20 16:37 | NUR ---
SW called pt cell number [phone] and introduced self and pt wanted to discuss FMLA paperwork and then possibly to begin ST disability pending paperwork. SW to continue to follow to assist with safe dc planning.
--- NOTE | 2019-09-20 17:49 | NUR ---
ASSESSMENT COMPLETED DOCUMENTED THIS MORNING. PATIENT UP IN W/C AND PARTICIPATING IN THERAPIES ORDERED. PATIENT DEMONSTRATES A VERY MOTIVATED ATTITUDE AND WANT TO GO HOME SOON. UNDERSTANDING VERBALIZED TO CALL FOR ASSISTANCE WITH ALL TRANSFERS. DENIES ANY PAIN OR DISCOMFORT. MAINTAINS INDEP MGMT WITH BLOOD SUGARS AND ADMIN OF DIABETES MEDICATIONS FROM HOME.
[2019-09-20 20:14] VITALS: BP 122/73
--- NOTE | 2019-09-21 03:40 | NUR ---
ASSUMED CARE FROM DAY SHIFT PT UP IN CHAIR IN HALLWAY TOLERATED WELL, ASSISTED TO BED WITH LITLE ASSIST. PAIN MEDICATION AND SLEEPING PILL GIVEN X2 PRECRIBED. PT RESTED WELL THROUGHOUT HOURLY ROUNDS WILL CONITNUE WITH CURRENT PLAN OF CARE AND WILL REPORT CHANGES.
[2019-09-21 08:04] VITALS: BP 118/74
[2019-09-21 20:14] VITALS: BP 112/75
--- NOTE | 2019-09-22 01:41 | NUR ---
ASSUMED CARE @ -SAT.PROPELS W/C IN UNIT IND W/ HANDS @ THIS TIME. REFUSED HS PRN SHIKHA.SBA FOR PIVOT TRANSFER FROM W/C TO BED.BED ALARM PUT ON @ 2214.TWO URINALS W/IN REACH.ON HOURLY ROUNDS.REVENUE SPECIALIST DOING ODD HOUR ROUNDS.
[2019-09-22 05:10] LABS: HEMATOCRIT 30.8 % (42.0-52.0); HEMOGLOBIN 11.4 gm/dL (14.0-18.0); MCH 33.2 pg (26.0-34.0); MCHC 36.9 g/dL (28.0-37.0); MCV 89.8 fL (80.0-100.0); MPV 7.8 fl. (7.2-11.1); RBC 3.43 mil/uL (4.50-6.00); RDW-CV 13.8 % (10.5-14.5); WBC 6.1 thou/uL (4.0-11.0)
[2019-09-22 05:17] LABS: ALBUMIN 2.8 g/dL (3.4-5.0); CALCIUM 8.1 mg/dL (8.5-10.1); CREATININE 0.9 mg/dL (0.6-1.3); MAGNESIUM 2.2 mg/dL (1.8-2.4); PHOSPHORUS* 4.2 mg/dL (2.5-4.9); POTASSIUM 3.8 mmol/L (3.5-5.1)
--- NOTE | 2019-09-22 05:41 | NUR ---
SLEPT LATE @ 2300.WANTS TO SIT UP IN W/C @ 0430 & SB ASSISTED.ACCUCHECK @ HS-74.PT DOES OWN ACCUCHECK.GAVE SELF 20 UNITS BASAGLAR INSULIN SC @ HS. ATE ALL DIET SPRITE,TURKEY MEAT,PEANUTS,REJI CRACKERS 2 PACKAGES HS SNACKS.USED URINAL X4.NURSE EMPTIES URINAL @ NIGHT.
[2019-09-22 07:35] VITALS: BP 144/74
--- NOTE | 2019-09-22 18:24 | NUR ---
AM ASSESSMENT AND VITAL SIGNS COMPLETED DOCUMENTED. PT COMPLETED AM CARES WITH SUPERVISION AND AMBULATED IN THE HALLS EVERY TWO HOURS, INCRESING THE DISTANCE EACH TIME. FALL PRECAUTIONS AND HOURLY ROUNDING CONTINUE.
[2019-09-22 19:30] VITALS: BP 117/73
--- NOTE | 2019-09-23 01:47 | NUR ---
ASSUMED CARE @ 1916-09/21-SUN.SITS IN W/C WATCHING TV.STANDS HOLDING ON TO WALKER WHEN EVER ADS ON TV.PIVOT TRANSFER FROM W/C TO BED W/ SBA.TWO URINALS @ BEDSIDE.BED ALARM PUT ON @ 2204.HOB UP.ON HOURLY ROUNDS.DRY MOLDER DOING ODD HOUR ROUNDS.DECREASED NUMBNESS FROM KNEES TO FEET.
--- NOTE | 2019-09-23 05:34 | NUR ---
SLEPT LATE @ 2300 & SLEEPING GOOD ALL NIGHT.AWAKE @ 0400.SEE PAIN MANAGEMENT @ 0513.TOOK ALL DIET SPRITE,APPLE JUICE X2 & GRANOLA BAR HS SNACKS.WANTS TO AMBULATE @ 0515 FROM BED TO TOILET & FROM TOILET TO W/C W/ SBA.GAIT-STEADY. BLACK COFFEE GIVEN @ 0520.USED URINALS X5 & BRP X1 TO VOID.
[2019-09-23 06:59] VITALS: BP 118/67
[2019-09-23 07:45] VITALS: BP 118/67
--- NOTE | 2019-09-23 14:54 | NUR ---
REMAINS A&OX4. RESPIRATIONS EVEN AND UNLABORED ON ROOM AIR. DENIES PAIN. MEDICATED WITH PRN PAIN MED PER MD ORDER. AMBULATES IN ROOM AND HALLWAY WITH STAFF. STEADY GAIT NOTED. BLOOD GLUCOSE MONITORED ACHS AND PRN VIA EUGENIA. NO S/SX OF HYPO/HYPERGLYCEMIA THIS SHIFT. CONTINUES TO C/O SLIGHT NUMBNESS AND TINGLING TO LIMBS. CHAIR ALARM ON WHILE OUT OF BED TO CHAIR. CALL DEGE AND PERSONAL ITEMS WITHIN REACH. NSG WILL CONTINUE TO ASSESS.
[2019-09-23 20:00] VITALS: BP 124/80
--- NOTE | 2019-09-24 05:52 | NUR ---
PATIENT SLEPT MOST OF THE NIGHT. PATIENT DENIED THE NEED FOR ANY PAIN PILLS THIS SHIFT. PATIENT IS UP [facility] ASSIST WITH WALKER AND GAITBELT. WILL CONTINUE TO MONITOR.
[2019-09-24 08:00] VITALS: BP 129/80
--- NOTE | 2019-09-24 16:03 | NUR ---
SW called and spoke with pt in preparation for team conference tomorrow. Pt did not have any questions or concerns at this time. SW to continue to follow to assist with safe dc planning.
--- NOTE | 2019-09-24 16:51 | NUR ---
ASSUMMED CARE OF PT AT 0730, PT ALERT AND ORIENTED, PT TRANSFERS WITH SBA, GB AND CARRIES WALKER WHEN WALKING FROM CHAIR TO BATHROOM, PT STATES HE JUST CARRIES IT SO HE CAN SET IT DOWN IF HE BECOMES UNSTEADY, THERAPY AWARE THAT PATIENT CARRIES HIS WALKER, PT STATES HE HAS MILD PAIN BUT DENIES NEED FOR PAIN MEDICATION, PT TESTS OWN BLOOD SUGAR AND GIVES HIMSELF HIS OWN INSULIN,STATES HE DOES HAVE NUMBNESS FROM HIS KNEES THRU HIS FEET, TAKING FOOD AND FLUIDS WELL, PARTICIPATED IN ALL THERAPIES, HOURLY ROUNDING COMPLETED, ASSESSMENT COMPLETE, WILL CONTINUE TO MONITOR.
[2019-09-24 20:20] VITALS: BP 111/66
--- NOTE | 2019-09-24 20:20 | NUR ---
SITTING UP IN WHEELCHAIR TALKING TO HIS MOM ON CELL. DENIES DISCOMFORT. CALL LIGHT AND TWO URINALS WITHIN REACH.
--- NOTE | 2019-09-25 05:44 | NUR ---
RESTED QUIETLY IN BED UNTIL 05. CURRENTLY UP IN WHEELCHAIR. PER PATIENT'S REQUEST TESTED HIS BLOOD GLUCOSE X 2. PATIENT USUALLY CHECKS HIS OWN BLOOD GLUCOSE BUT HIS READER AND/OR PATCH IS DEFECTIVE. PATIENT STATES HE CHANGED HIS PATCH THAT HE USES TO CHECK HIS BLOOD GLUCOSE WITH YESTERDAY. USES URINAL X 3 DURING THE NIGHT. HOURLY ROUNDING IN PROGRESS.
[2019-09-25 08:00] VITALS: BP 125/72
--- NOTE | 2019-09-25 14:38 | NUR ---
AM ASSESSMENT AND VITAL SIGNS COMPLETED DOCUMENTED. PT CONTINUES TO WORK WITH ALL THERAPIES AND CONTINUES TO MAKE PROGRESS. GABAPENTIN IS BEING TAPERED DOWN PER HIS REQUEST. FALL PRECAUTIONS AND HOURLY ROUNFING CONTINUE.
--- NOTE | 2019-09-25 16:14 | NUR ---
Team conference held today. SW spoke with pt to review team conference summary and plan for possible one more week on inpt rehab and to dc next Sunday 10/01. SW explained to team and to pt that SW to provide insurance another update tomorrow and insurance will then determine if pt able to remain another week or if pt will need to dc home sooner due to insurance stating that pt does not have half-way benefits and pt would be considered ready to dc home at a supervision level. Pt hopeful to be able to continue inpt rehab therapies through the week. Pt plans to discuss with his . SW to continue to follow to assist with safe dc planning.
[2019-09-25 21:10] VITALS: BP 124/67
--- NOTE | 2019-09-26 00:56 | NUR ---
ASSUMED CARE @ 1936-09/24-MON.SITS UP IN W/C & PROPELS SELF IND IN UNIT. CHAIR ALARM ALREADY ON @ 1936.REFUSED HS DOSE HYDROCODONE.SBA FOR TRANSFER FROM W/C TO BED @ 2154.HOB UP IN BED.TWO URINALS W/IN REACH.BED ALARM PUT ON @ 2154.TURNS SELF @ NIGHT.ON HOURLY ROUNDS.
--- NOTE | 2019-09-26 05:36 | NUR ---
SLEEPING SINCE 2230.AWAKE BRIEFLY ONCE @ 0400.USED URINAL X3 DURING NIGHT. NURSE EMPTIES URINALS.TOOK ALL DIET SPRITE,TURKEY MEAT & PEANUTS HS SNACKS.
[2019-09-26 08:00] VITALS: BP 102/73
--- NOTE | 2019-09-26 14:21 | NUR ---
SW called pt to provide update that pt insurance approved continued rehab stay with LCD of 10/01. Pt pleased with plan for reteam and likely dc after team Sunday 10/01. Pt did not have any other concerns at this time. SW to continue to follow to assist with safe dc planning.
--- NOTE | 2019-09-26 16:38 | NUR ---
ASSUMMED CARE OF PT AT 0730, PT ALERT AND ORIENTED, PT TRANSFERS WITH SBA AND GB, PT DENIES PAIN, TAKING FOOD AND FLUIDS WELL, PT AMBULATES TO BATHROOM, PT HAD BM THIS SHIFT, STATES FINGERTIPS ARE TINGLING AND TOES TINGLING, BUT STATES IMPROVING, CHECKS OWN BLOOD SUGAR AND SELF ADMINISTERS INSULIN, PARTICIPATED IN ALL THERAPIES, HOURLY ROUNDING COMPLETED, ASSESSMENT COMPLETE, WILL CONTINUE TO MONITOR.
[2019-09-26 21:25] VITALS: BP 114/68
--- NOTE | 2019-09-27 01:38 | NUR ---
ASSUMED CARE @ 1924-09/25-.SITS IN W/C IN ROOM WATCHING TV.CHAIR ALARM ALREADY ON @ 1924.TWO URINALS W/IN REACH.SBA TO BED FROM W/C @ 2199.BED ALARM PUT ON @ 2199.ON HOURLY ROUNDS.
--- NOTE | 2019-09-27 05:34 | NUR ---
SLEEPING SINCE 2229 & SLEPT GOOD ALL NIGHT.USED URINAL X 3.NURSE EMPTIES URINALS @ NIGHT.TOOK TURKEY MEAT W/ DIET SPRITE HS SNACKS.
[2019-09-27 08:00] VITALS: BP 124/77
--- NOTE | 2019-09-27 18:52 | NUR ---
ASSESSMENT COMPLETED DOCUMENTED THIS MORNING. PATIENT TOLERATING THERAPY WELL AND HAS BEEN UP AMBULATING IN THE HALLS MULTIPLE TIMES. DENIES ANY PAIN OR DISCOMFORT. CONTINUES TO MANAGE HIS DIABETES AND BLOOD SUGARS INDEP.
[2019-09-27 20:00] VITALS: BP 93/73
--- NOTE | 2019-09-28 04:35 | NUR ---
PATIENT IN W/CHAIR AT BEGINNING OF SHIFT. PT ABLE TO TAKE PILLS WHOLE WITH WATER. PT DENIES PAIN/NAUSEA DURING THIS SHIFT. PT SAID HE HAS SLIGHT NUMBNESS AND TINGLING OF FEET. PT REQUESTED TURKEY SANDWICH FOR SNACK AT HS. PT USES CALL LIGHT APPROPRIATELY FOR STANDBY ASSIST TO GET FROM W/CHAIR TO BED. PT TO BED WITH ONLY STANDBY. PT DENIES NEEDS AT THIS TIME. FREQUENTLY USED ITEMS AND CALL LIGHT WITHIN REACH. SIDERAILS UPX3 AND BED ALARM ON. WILL CONTINUE TO MONITOR.
[2019-09-28 07:15] VITALS: BP 123/78
--- NOTE | 2019-09-28 19:33 | NUR ---
PATIENT A&OX4. PATIENT ABLE TO GET BG AND GIVE INSULIN TO SELF. PATIENT AMBULATED HALLS WITH SUPERVISION AND GAIT BELT. PATIENT GOAL TO WALK 1,000 STEPS 3-4X A DAY. CALM COOPERATIVE. LSCTA. HEART SOUNDS REGULAR.
[2019-09-28 20:00] VITALS: BP 93/67
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
[2019-09-29 08:30] VITALS: BP 111/72
--- NOTE | 2019-09-29 18:01 | NUR ---
ALERT AND ORIENTED X4. UP WITH STAND BY ASSIST, GAIT BELT AND WALKER. AMBULATING IN HALLWAY. NO C/O PAIN. CONTINENT OF BOWEL AND BLADDER. DOES OWN BLOOD SUGAR CHECKS AND INSULIN. USES CALL LIGHT WHEN NEEDING ASSIST. FALL PRECAUTIONS IN PLACE.
--- NOTE | 2019-09-29 18:45 | NUR ---
ALERT AND ORIENTED X4. UP WITH STAND BY ASSIST AND GAIT BELT. AMBULATED SEVERAL LAPS IN HALLWAY. NOC/O PAIN. CONTINENT OF BOWEL AND BLADDER. PATIENT CHECKS OWN BLOOD SUGAR AND DOES OWN INSULIN. USES CALL LIGHT WHEN NEEDING ASSIST. FALL PRECAUTIONS IN PLACE.
[2019-09-29 19:30] VITALS: BP 107/74
--- NOTE | 2019-09-30 00:57 | NUR ---
ASSUMED CARE @ 1921-09/28-MONDAY.SITS IN W/C IN ROOM WATCHING TV.CHAIR ALARM ON ALREADY @ 1921.SBA FOR TRANSFER FROM W/C TO BED @ 2199.STEADY.TWO URINALS W/IN REACH.BED ALARM PUT ON @ 2199.ON HOURLY ROUNDS.TURNS SELF @ NIGHT.
--- NOTE | 2019-09-30 05:24 | NUR ---
sleeping since 2300 & slept good all night.TOOK TURKEY MEAT,DIET SPRITE. REJI CRACKERS X2 PACKAGES & GRANOLA BARS HS SNACKS.USED URINAL X1.NURSE EMPTIES URINAL @ NIGHT.AWAKE @ 0500.BRP X1 W/ SBA,THEN SAT UP IN W/C- DRINKING COFFEE.
[2019-09-30 07:35] VITALS: BP 121/82
--- NOTE | 2019-09-30 16:51 | NUR ---
PATIENT UP TO CHAIR THIS SHIFT. UP WITH GAIT BELT, AMBULATING HALLS WITH ASSITANCE. PATIENT DID GO OUT TO [facility] WITH ST STAFF, MASK WAS WORN BY PATIENT. NO COMPLAINTS OF PAIN. PATIENT ANXIOUS TO GO HOME. BID [facility]ITIES DC'D PER DR. COSME ORDERS.
[2019-09-30 19:35] VITALS: BP 105/64
--- NOTE | 2019-10-01 01:12 | NUR ---
ASSUMED CARE @ 1924-09/29-MONDAY.SITS IN W/C IN ROOM WATCHING TV & TALKING ON HIS SMART PHONE.CHAIR ALARM ALREADY ON @ 1924.REFUSED HS DOSE REMERON @ 2003. SBA FOR ALL TRANSFERS FROM CHAIR TO BED W/ GAIT BELT ONLY @ 2214.BED ALARM PUT ON @ 2214.ON HOURLY ROUNDS.TWO URINALS W/IN REACH.
--- NOTE | 2019-10-01 05:41 | NUR ---
SLEEPING @ 0000-09/30-TUES & SLEPT GOOD ALL NIGHT.USED URINAL X1.NURSE EMPTIES URINAL @ NIGHT.TOOK ALL DIET SPRITE,REJI CRACKERS X2 PAckages,TURKEY MEAt & GRANOLA BARS HS SNACKS.
[2019-10-01 08:00] VITALS: BP 119/77
--- NOTE | 2019-10-01 16:54 | NUR ---
ASSUMMED CARE OF PT AT 0730, PT MOD I IN ROOM, AMBULATES WITH SBA GB IN HALLS, TAKING FOOD AND FLUIDS WELL, DENIES PAIN, DOES OWN BLOOD SUGAR CHECKS AND ADMINISTERS OWN INSULIN, UP IN CHAIR ALL SHIFT, PLANNING FOR DISCHARGE TOMMORROW, PARTICIPATED IN ALL THERAPIES, HOURLY ROUNDING COMPLETED, ASSESSMENT COMPLETE, WILL CONTINUE TO MONITOR.
[2019-10-01 21:00] VITALS: BP 122/68
[2019-10-02] MEDS ORDERED: REMERON15 M1 PO (00:49)
--- NOTE | 2019-10-02 06:00 | NUR ---
PATIENT HAS SLEPT WELL THROUGHOUT THE NIGHT. VSS ON RA. PATIENT UP INDEPENDENTLY AND STABLE ON FEET. PATIENT USES BEDSIDE URINAL DURING THE NIGHT. PATIENT INSTRUCTED TO USE CALL LIGHT WHEN NEEDING ASSISTANCE. HOURLY ROUNDS MADE. PATIENTS GOAL TODAY IS TO DISCHARGE TO HOME. NURSING TO CONTINUE MONITORING.
[2019-10-02 08:00] VITALS: BP 121/70
[2019-10-02 10:55] VITALS: BP 121/70
--- NOTE | 2019-10-02 14:03 | NUR ---
ASSUMMED CARE OF PT AT 0730, PT ALERT AND ORIENTED, PT MOD I IN ROOM, VOIDS PER TOILET, TAKING FOOD AND FLUIDS WELL, DENIES PAIN, PARTICIPATED IN ALL THERAPIES, HOURLY ROUNDING COMPLETED, ASSESSMENT COMPLETE, ORDERS OBTAINED FOR DISCHARGE, DISCUSSED MEDICATION, FOLLOW UP APPTS, WHEN TO CALL PHYSICIAN, NUTRITION THERAPIST WILL CALL WITH FOLLOW UP OUTPT PHYSICAL THERAPY INFORMATION, PT INSTRUCTED HE CAN NOT DRIVE UNTIL CLEARED BY NEUROLOGY,PT STATES UNDERSTANDING OF INSTRUCTIONS, AMBULATED TO MAIN ENTRANCE WITH BELONGINGS AND TO DRIVE PT HOME.
[2019-10-02 16:04] VITALS: BP 121/70
[2019-10-02 16:17] VITALS: BP 121/70
--- NOTE | 2019-10-02 17:01 | NUR ---
Team conference held today. SW called pt and confirmed team and pt agree pt ready to dc home with today and OP PT and OT to follow. Pt wanted to dc prior to confirmation that OP services are arranged; SW to follow up with pt after OP services are arranged; pt preference for [facility] if possible. SW discussed with dc transportation planner to fax referral. [facility] attempted to precertify with pt insurance but was told by one customer field representative with insurance that there needs to be precert and by another that there didn't but either way, CPT codes were needed; SW does not have the CPT codes and left a message for OP therapy to call SW to be able to finalize the OP referral.
--- NOTE | 2019-10-04 14:21 | NUR ---
SW received confirmation from Julissa in [facility] OP that pt referral and orders accepted and that they scheduled for pt therapy to begin Monday and that they spoke with the pt to arranged this so pt is aware of plan.
== END 2019-10-02 13:45 | disposition home or self-care (01) | DRG 96 ==
LOC: M.REH 15:03
PROVIDERS: Family Medicine; ADMIT Physical Medicine & Rehabilitation
DX: G61.0 Guillain-Barre syndrome (principal); R27.0 Ataxia, unspecified; E10.9 Type 1 diabetes mellitus without complications; I10 Essential (primary) hypertension; E78.00 Pure hypercholesterolemia, unspecified; F17.210 Nicotine dependence, cigarettes, uncomplicated; I25.10 Atherosclerotic heart disease of native coronary artery without angina pectoris; G47.00 Insomnia, unspecified; E78.2 Mixed hyperlipidemia; G62.9 Polyneuropathy, unspecified; Z88.1 Allergy status to other antibiotic agents; Z79.899 Other long term (current) drug therapy; Z79.4 Long term (current) use of insulin; Z79.82 Long term (current) use of aspirin